=== PATIENT | female | born 1980 | race Two or more races ===

== ENCOUNTER 2016-10-06 22:09 | Emergency (ER) | payer OTHER ==
[~2016-10-06] VITALS: Ht 165.1 cm; Wt 67.1 kg
--- NOTE | 2016-10-06 23:17 | NUR ---
PT WAS OFFERED A HALLWAY LOCATION. PT'S SIGNIFICANT OTHER WAS INFORMED THAT NO BEDS AVAILABLBLE FOR MD ASSESSMENT, HE RESPONDED HE WOULD ACCEPT A WHEELCHAIR IN THE HALLWAY.
[2016-10-07 01:28] VITALS: BP 122/78
--- NOTE | 2016-10-07 01:28 | NUR ---
Patient discharged to home in stable conditon. Written and verbal after care instructions given. Patient verbalizes understanding of instructions.
== END 2016-10-07 01:29 | disposition home or self-care (01) ==
LOC: ER 22:10
DX: M62.838 Other muscle spasm (principal); F41.9 Anxiety disorder, unspecified; F17.200 Nicotine dependence, unspecified, uncomplicated
CPT/HCPCS: A4663